=== PATIENT | female | born 1985 | race Caucasian/White ===

== ENCOUNTER 2019-02-09 15:50 | Emergency (ER) | payer SELFPAY ==
[~2019-02-09] VITALS: Ht 152.4 cm; Wt 64.4 kg
--- NOTE | 2019-02-09 16:00 | NUR ---
DR. FINK IN TRIAGE, PT STATES SHE HAS A HX OF MIGRAINES AND THE NUMBNESS BEFORE TO THE LEFT SIDE.
[2019-02-09] MEDS ORDERED: SODIUM CHLORIDE 0.9% 1000ML 1,000 ML IV SCH (16:15)
[2019-02-09] MEDS ORDERED: METOCLOPRAMIDE HCL 10 MG/2ML VIAL IV ONE (16:30)
--- NOTE | 2019-02-09 16:34 | Diagnostic Imaging Report ---
History: Face and hand numbness Comparison studies: None Technique: Axial images were obtained from the skull base to the vertex. Coronal and sagittal reconstructions obtained from the axial data. Dose modulation, iterative reconstruction, and/or weight based adjustment of the mA/kV was utilized to reduce the radiation dose to as low as reasonably achievable. Intravenous contrast: None Findings: Scalp/skull: No abnormalities. No fractures, blastic or lytic lesions. Extra-axial spaces: No masses. No fluid collections. Brain sulci: Appropriate for age. Ventricles: Normal in size and configuration. No hydrocephalus. Parenchyma: No abnormal densities. No masses, hemorrhage, acute or chronic cortical vascular insults. Sellar/suprasellar region: No abnormalities Craniocervical junction: Patent foramen magnum. No Chiari one malformation. Incidental peripheral mucosal thickening in the maxillary and sphenoid sinuses IMPRESSION: No intracranial abnormalities. Signed by: Dr. Sorin Ott M.D. on 02/09/2019 4:31 PM
--- NOTE | 2019-02-09 17:00 | NUR ---
I WAS CALLED TO PT ROOM FOR C/O "IV FEELING SO WEIRD, I NEED YOU TO TAKE THIS OUT NOW, I JUST CAN'T HAVE THIS, I DON'T LIKE THE WEIRD FEELING OF IT". DR. FINK NOTIFIED, PT TO SIGN OUT AMA IF SHE DOESN'T WANT MEDICATIONS AND TREATMENT ORDERED. PT IS AWARE OF THE RISKS OF REFUSAL AND IF SHE LEAVES THE ER WITHOUT HER RESULTS, SHE IS OK WITH IT AND SIGNED AMA FORM. IV AND IV FLUIDS REMOVED FROM LEFT AC WITH NO S/S INFECTION.
[2019-02-09 17:36] LABS: BASOPHILS % 0.3 % (0.0-1.0); EOSINOPHILS # (AUTO) 0.3 (0.0-0.4); EOSINOPHILS % 3.1 % (0.0-6.0); HEMATOCRIT 41.4 % (34.2-44.1); HEMOGLOBIN 13.5 g/dL (12.0-16.0); LYMPHOCYTES # (AUTO) 1.7 (1.0-3.2); LYMPHOCYTES % 19.2 % (18.0-39.1); MEAN CORPUSCULAR HEMOGLOBIN 29.3 pg (28-32); MEAN CORPUSCULAR HGB CONC 32.6 g/dL (31-35); MONOCYTES # (AUTO) 0.5 (0.2-0.8); MONOCYTES % 5.8 % (4.4-11.3); NEUTROPHILS # (AUTO) 6.1 (2.1-6.9); NEUTROPHILS % 71.3 % (38.7-80.0); PLATELET COUNT 192 x10e3/uL (140-360); RED CELL DISTRIBUTION WIDTH 12.7 % (11.7-14.4)
[2019-02-09 17:43] LABS: BILIRUBIN,URINE NEGATIVE (NEGATIVE); CLARITY,URINE CLEAR (CLEAR); COLOR,URINE YELLOW (YELLOW); KETONES,URINE TRACE (NEGATIVE); LEUKOCYTE ESTERASE ,URINE NEGATIVE (NEGATIVE); NITRITE,URINE NEGATIVE (NEGATIVE); PROTEIN,URINE DIPSTICK TRACE (NEGATIVE); URINE UROBILINOGEN 0.2 mg/dL (0.2 - 1)
[2019-02-09 17:46] LABS: ALANINE AMINOTRANSFERASE 26 IU/L (0-55); ALBUMIN 3.8 g/dL (3.5-5.0); ALBUMIN/GLOBULIN RATIO 0.9 (0.8-2.0); ALKALINE PHOSPHATASE 42 IU/L (40-150); ANION GAP 15.7 mmol/L (8-16); BLOOD UREA NITROGEN 10 mg/dL (7-26); BUN/CREATININE RATIO 12 (6-25); CALCIUM 8.9 mg/dL (8.4-10.2); CARBON DIOXIDE 24 mmol/L (22-29); CHLORIDE 104 mmol/L (98-107); CREATININE, SERUM 0.84 mg/dL (0.57-1.11); EST GLOMERULAR FILTRATION RATE > 60 ML/MIN (60-); GLUCOSE 117 mg/dL (74-118); POTASSIUM 4.7 mmol/L (3.5-5.1); SODIUM 139 mmol/L (136-145)
[2019-02-09 17:52] LABS: BACTERIA,URINE MANY /HPF; EPITHELIAL CELLS,URINE FEW /LPF; RBC,URINE 0-5 /HPF (0-5); WBC,URINE (MAN) 0-5 /HPF (0-5)
[2019-02-09 19:26] LABS: PREGNANCY TEST, URINE NEGATIVE (NEGATIVE)
== END 2019-02-09 17:05 | disposition left against medical advice (07) ==
LOC: ER 15:50
DX: R51 Headache (principal)
CPT/HCPCS: 36415; 70450; 80053; 81001; 81025; 85025; 99283; J2765; J7030